=== PATIENT | female | born 1985 | race Caucasian/White ===

== ENCOUNTER 2018-08-23 16:18 | Inpatient (IN) | payer MEDICAID ==
[~2018-08-23] VITALS: Ht 154.9 cm; Wt 103.5 kg
[2018-08-23 16:57] VITALS: BP 120/70; PULSE 91; Ht 154.9 cm; Wt 103.5 kg
[2018-08-23] MEDS ORDERED: PNV11TAB PO (16:58)
[2018-08-23] MEDS ORDERED: OXYTOCIN 30 UNITS/LR 500 ML IV SCH ×2 (19:00)
[2018-08-23] MEDS ORDERED: CARBOPROST 250 MCG INJ IM PRN (19:00)
[2018-08-23] MEDS ORDERED: MISOPROSTOL 200 MCG TAB PR PRN (19:00)
[2018-08-23] MEDS ORDERED: BUTORPHANOL 1 MG INJ IV PRN (19:00)
[2018-08-23] MEDS ORDERED: METHYLERGONOVINE 0.2 MG INJ IM PRN (19:00)
[2018-08-23] MEDS ORDERED: LIDOCAINE 1% (MPF) 30 ML INJ INJ PRN (19:00)
[2018-08-23] MEDS ORDERED: OXYTOCIN 30 UNITS/LR 500 ML IV PRN (19:00)
[2018-08-23] MEDS ORDERED: BUTORPHANOL 2 MG INJ IV PRN (19:00)
[2018-08-23] MEDS: LACTATED RINGER'S 1,000 ML IV SCH (19:35)
[2018-08-23] MEDS: MISOPROSTOL 50 MCG CAPSULE PO SCH (21:19)
[2018-08-24] MEDS: LACTATED RINGER'S 1,000 ML IV SCH ×3 (02:13→14:17)
[2018-08-24] MEDS: MISOPROSTOL 50 MCG CAPSULE PO SCH ×2 (07:54→12:45)
[2018-08-24] MEDS ORDERED: MINERAL OIL LIGHT 10 ML VIAL TOP ONE (16:00)
[2018-08-24] MEDS ORDERED: IBUPROFEN 600 MG TAB PO PRN (22:30)
--- NOTE | 2018-08-24 22:41 | HP ---
Date/Time of Note Date/Time of Note DATE: 08/24/18 TIME: 22:38 OB - History Hx of Present Free Text/Dictation 33 years old with single intrauterine at 39 weeks and 6days was seen in triage, ultrasound performed, SUJATA of 6 cm. She was admitted for induction of labor. She states good movement. She denies nausea, vomiting, shortness of breath, chest pain, headache, visual changes, vaginal bleeding or LOF. Chief Complaint: No amniotic fluid Estimated Due Date: Aug 24, 2018 : 2 Para: 0 Spontaneous : 1 Therapeutic : 0 Care: Good Care Ultrasounds: Normal mid trimester US Obstetrical Complications: None Medical Complications: None Past Family/Social History * Past Medical, Surgical, Family and Obstetric Histories reviewed from chart. Blood Type: O+ Rubella: immune RPR/VDRL: Negative GBS Status: Negative HBsAG: Negative OB Admission Exam Vital Signs Vital Signs Vital Signs Date Temp Pulse Resp B/P (MAP) Pulse Ox O2 O2 Flow FiO2 Time Delivery Rate 08/23/18 98.4 91 120/70 16:57 (87) Physical Exam HEENT: WNL Heart: Rhythm Normal Lungs: Clear Abdomen: WNL Extremities: Normal Cervical Dilatation: 1cm Effacement: 50% Station: -3 Membranes: Intact Heart Rate: 130's Accelerations: Accelerations Present Decelerations: No Decelerations Varibility: Moderate Contractions on Admission: >10 Minutes Apart Last 72 hours Lab Results CBC & BMP 08/23/18 19:25 OB Assessment/Plan Other plan: 33 years old at 39 weeks and 6 days with oligohydramnios - FHR: No sign of metabolic acidosis- Category I - Continuous EFM, toco - CBC, blood type and screen - Analgesia options with R/B/A discussed in detail with patient - Epidural per patient request - Please see the orders - O+/Rubella: Immune - GBS: Negative admission, procedures, expectations, risks and possible complications have been discussed in detail with the patient. Risk of vaginal delivery including but not limited to bleeding, infection, cervical laceration, placental retention, injury to fetus, blood transfusion, blood transfusion related infection, risk of anesthesia, adhesion, cervical laceration, episiotomy/laceration, possible delivery with risk of bleeding, infection, injury to other organs (bowel, bladder, ureter, vessels, nerves), injury to fetus, blood transfusion, blood transfusion related infection, risk of anesthesia, scar and hernia formation, needs for future , removal of uterus or any other indicated surgery discussed with the patient. She expressed understanding and repeats the risks. All of her questions were answered. She signed the informed consent. PHYSICIAN'S VERIFICATION OF INFORMED CONSENT The patient [] was counseled regarding the procedure, its indications, risks, potential complications and alternatives and any questions were answered. Consent was obtained. PLANNED PROCEDURE/TREATMENT: Vaginal delivery, episiotomy, repair of laceration possible delivery WANDA LOPEZ Aug 24, 2018 22:41
--- NOTE | 2018-08-24 22:44 | LDN ---
Date/Time of Note Date/Time of Note DATE: 08/24/18 TIME: 22:41 Delivery Summary 33 years old with single intrauterine at 40 weeks delivered a viable female over median episiotomy. Nose and mouth suctioned. Rest of body delivered. Cord clamped and cut. Baby given to the told resuscitation team. Placenta delivered spontaneously and intact with three- vessel cord. Laceration repaired with 2-0 Vicryl. Patient tolerated procedure well. Amniotic fluid thin meconium Time of delivery 22:07 Weight 7 pounds 12 ounces 8 at 1 minutes and 9 at 5 minutes EBL 400 and Weeks of Gestation 40 weeks Placenta Delivered: Spontaneously Meconium: Light Episiotomy: Yes Indication for episiotomy Facilitate vaginal delivery Anesthesia type: Local Estimated blood loss: 400 Sponge & Needle done & correct: Yes All needle counts correct: Yes Any foreign bodies felt in the: No Delivery Information Sex Sex: female Apgars 1 Minute: 8 5 Minute: 9 10 Minute: 10 Umbilical Cord Umbilical cord with: 3 Vessels Cord presentations: no nuchal cord Cord Blood was obtained: Yes Mother & Baby Disposition Disposition Mom & Baby to Maternity; Good: Yes WANDA LOPEZ Aug 24, 2018 22:44
[2018-08-24] MEDS ORDERED: ACETAMINOPHEN 500 MG TAB PO ONE (23:20)
[2018-08-25] MEDS ORDERED: LACTATED RINGER'S 1,000 ML IV* SCH (00:09)
[2018-08-25] MEDS ORDERED: DEXTROSE 5%-LR 1,000 ML IV SCH (00:09)
[2018-08-25 00:10] VITALS: BP 118/67; PULSE 100; RESP 18
[2018-08-25] MEDS ORDERED: SENNA/DOCUSATE NA (8.6MG/50MG) TAB PO PRN (00:30)
[2018-08-25] MEDS ORDERED: METHYLERGONOVINE 0.2 MG INJ IM PRN (00:30)
[2018-08-25] MEDS: IBUPROFEN 600 MG TAB PO SCH ×4 (00:30→17:37)
[2018-08-25] MEDS ORDERED: BENZOCAINE 20% 56 ML SPRAY TOP PRN (00:30)
[2018-08-25] MEDS ORDERED: ZOLPIDEM 5 MG TAB PO PRN (00:30)
[2018-08-25] MEDS ORDERED: WITCH HAZEL/GLYCERIN PAD PR PRN (00:30)
[2018-08-25] MEDS ORDERED: OXYTOCIN 30 UNITS/LR 500 ML IV PRN (00:30)
[2018-08-25] MEDS ORDERED: OXYCODONE/ASPIRIN (4.88/325) TAB PO PRN (00:30)
[2018-08-25] MEDS ORDERED: CARBOPROST 250 MCG INJ IM PRN (00:30)
[2018-08-25] MEDS ORDERED: LANOLIN HPA 1 PKT TOP PRN (00:30)
[2018-08-25] MEDS ORDERED: MISOPROSTOL 200 MCG TAB PR PRN (00:30)
[2018-08-25] MEDS ORDERED: ONDANSETRON 4 MG INJ IV PRN (00:30)
[2018-08-25] MEDS ORDERED: DIPHENHYDRAMINE 50 MG INJ IV PRN (00:30)
[2018-08-25] MEDS ORDERED: DIBUCAINE 1% 30 GM OINT TOP PRN (00:30)
[2018-08-25] MEDS ORDERED: ACETAMINOPHEN 325 MG TAB PO PRN (00:30)
[2018-08-25 04:05] VITALS: BP 117/59; PULSE 100; RESP 18
[2018-08-25 07:45] VITALS: BP 112/65; PULSE 76; RESP 18
--- NOTE | 2018-08-25 09:04 | QN ---
Documentation Comment s/p c/s Subjective: no complaint Objective: Afebrile, VSS NAD A&O Abdomen: soft, not tender mild lochia Extremity: 1+ edema bilaterally Assessment: S/p Day one Elevated WBC. had fever after , but not since then Plan: repeat CBC in am MJ SEGUNDO MD Aug 25, 2018 09:03
--- NOTE | 2018-08-25 14:51 | PN ---
Date/Time of Note Date/Time of Note DATE: 08/25/18 TIME: 14:49 OB Subjective Subjective Subjective Breast-feeding and bottlefeeding. Reports decreased vaginal bleeding. Urinat ed. Denies any dizziness. Reports an complaint of swelling of both feet. Denies any pain in her lower extremity. OB Objective Objective Objective Appearance: Alert and oriented x4 does not appear to be in any acute distress Abdomen: Soft, fundus palpable nontender above the umbilicus Breast: No evidence of mastitis or fissure Extremities: No calf tenderness, bilateral 1+ edema, no cord palpable Laboratory Tests Test 08/25/18 06:10 08/25/18 07:51 Lab Scanned Report REFERENCE LAB White Blood Count 19.1 #H Red Blood Count 3.62 L Hemoglobin 10.6 L Hematocrit 31.1 L Mean Corpuscular Volume 85.9 Mean Corpuscular Hemoglobin 29.3 Mean Corpuscular Hemoglobin Concent 34.1 Red Cell Distribution Width 15.9 H Platelet Count 325 Mean Platelet Volume 10.7 H Immature Granulocytes % 1.100 H Neutrophils % 80.7 H Lymphocytes % 11.2 L Monocytes % 6.8 Eosinophils % 0.0 Basophils % 0.2 Nucleated Red Blood Cells % 0.0 Immature Granulocytes # 0.210 H Neutrophils # 15.4 H Lymphocytes # 2.1 Monocytes # 1.3 H Eosinophils # 0.0 Basophils # 0.0 Nucleated Red Blood Cells # 0.0 OB Assessment/Plan Other Assessment: Status post day #1 Anemia, , asymptomatic Doing well Edema, physiologic, no evidence of DVT Routine care Anticipate DC home tomorrow ZACH SCHULTE MD Aug 25, 2018 14:51
[2018-08-25 16:02] VITALS: BP 104/54; PULSE 78; RESP 18
[2018-08-25 20:30] VITALS: BP 110/62; PULSE 72; RESP 19
[2018-08-26] MEDS: IBUPROFEN 600 MG TAB PO SCH ×3 (00:27→12:26)
[2018-08-26 04:30] VITALS: BP 107/57; PULSE 89; RESP 18
[2018-08-26 08:30] VITALS: BP 102/64; PULSE 90; RESP 18
[2018-08-26] MEDS ORDERED: MEASLES,MUMPS,RUBELLA VACCINE INJ SC* ONE (09:00)
[2018-08-26] MEDS ORDERED: DIPHTH/TET/ACEL PERTUSS (ADULT) 0.5 ML VIAL IM* ONE (09:00)
--- NOTE | 2018-08-26 11:36 | DS ---
Date/Time of Note Date/Time of Note DATE: 08/26/18 TIME: 11:34 Obstetrical Discharge Record Final Diagnosis Final Diagnosis: Term delivered Vaginal Delivery Obstetrical Delivery: Spontaneous, Episiotomy, Repaired Complications Induction: Yes Condition on Discharge Physical Assessment Last Vitals: Vss afebrile Voiding: Yes Bowel Movement: Yes Breast: Soft, non-tender Fundus: Firm Abdomen and Incision: n/a Episiotomy: healing ok Calf Tenderness: No Patient Condition: Stable LUCINDA SCHWARTZ MD Aug 26, 2018 11:36
--- NOTE | 2018-08-26 11:38 | PD.PPDC ---
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
== END 2018-08-26 13:48 | disposition home or self-care (01) | DRG 807 ==
LOC: OBT 16:18 → L-D 16:19 → OBT 18:25 → PP1 08-25 00:07
PROVIDERS: ADMIT Obstetrics & Gynecology; ATTEND Obstetrics & Gynecology
PROC: 10E0XZZ Delivery of Products of Conception, External Approach (ICD-10-PCS; principal; 2018-08-24)
PROC: 0HQ9XZZ Repair Perineum Skin, External Approach (ICD-10-PCS; 2018-08-24)
DX: O48.0 Post-term pregnancy (principal); Z37.0 Single live birth; O70.0 First degree perineal laceration during delivery; Z3A.40 40 weeks gestation of pregnancy
CPT/HCPCS: 76815; 76818; 85025; 85610; 85730; 86592; 86850; 86900; 86901; 87340; 90715; 99464; G0463; J2590; J7120; J7121